=== PATIENT | female | born 1960 | race Caucasian/White ===

== ENCOUNTER 2019-05-18 10:56 | Observation (INO) ==
[2019-05-18] MEDS ORDERED: PEPCID ONE (11:50)
[2019-05-18] MEDS ORDERED: REGLAN ONE (11:50)
[2019-05-18] MEDS ORDERED: KEFZOL 1 GM/D5W 1 GM/50 ML IVPB ONE (11:50)
[2019-05-18] MEDS ORDERED: LR 1,000 ML ONE (11:50)
[2019-05-18] MEDS ORDERED: VERSED ONE (11:53)
[2019-05-18] MEDS ORDERED: XYLOCAINE-MPF 2% ONE (11:53)
[2019-05-18] MEDS ORDERED: FENTANYL ONE (11:54)
[2019-05-18] MEDS ORDERED: DIPRIVAN 1% ONE (11:54)
[2019-05-18] MEDS ORDERED: MARCAINE 0.25% PF/EPI 1:200,000 ONE (12:32)
[2019-05-18] MEDS ORDERED: METHYLENE BLUE 0.5% ONE (12:32)
[2019-05-18] MEDS ORDERED: QUELICIN (DOSE) ONE (13:03)
--- NOTE | 2019-05-18 13:08 | Diag Imaging Result Doc PS360 ---
EXAM: LYMPHOSCINTIGRAPHY W/IMG INDICATION: breast cancer TECHNIQUE: COMPARISON: None. FINDINGS: 505 uCi of technetium 99 tilmanocept was injected by Dr. Washington Hendricks subcutaneously in the quadrant of the right breast malignancy and imaging was obtained in usual fashion for the purposes of sentinel node localization prior to surgery. There is expected activity at the injection site as well as the expected axillary sharon activity. IMPRESSION: As above. Electronically signed by Ambrocio Oliva 05/18/2019 1:05 PM
[2019-05-18] MEDS ORDERED: ZOFRAN ONE (14:16)
[2019-05-18] MEDS ORDERED: DECADRON ONE (14:16)
[2019-05-18] MEDS ORDERED: EPHEDRINE ONE (14:56)
[2019-05-18] MEDS: DILAUDID ONE ×4 (15:37→15:56)
[2019-05-18] MEDS ORDERED: SALINE LOCK IV FLUID XX ONE (16:35)
[2019-05-18] MEDS ORDERED: ZOFRAN IV PRN (16:59)
[2019-05-18] MEDS ORDERED: ZOVIRAX PO PRN (16:59)
[2019-05-18] MEDS ORDERED: NON-FORMULARY MED (Fluticasone/Umeclidin/Vilanter [Trelegy Ellipta 100-62.5-25] 0 EA) INH PRN (16:59)
[2019-05-18] MEDS: NORCO-10 PO PRN ×2 (17:49→22:30)
[2019-05-18] MEDS: NICODERM PATCH TD SCH (19:06)
--- NOTE | 2019-05-18 20:05 | OPERATIVE NOTE ---
PROCEDURE DATE: 05/18/2019 PREOPERATIVE DIAGNOSIS: Right breast cancer. POSTOPERATIVE DIAGNOSIS: Right breast cancer. PROCEDURE: 1. Right axillary sentinel lymph node biopsy. 2. Right total mastectomy. SURGEON: Washington Hendricks MD. ANESTHESIA: General. ESTIMATED BLOOD LOSS: 20 mL. COMPLICATIONS: None apparent. SPECIMENS: 1. Right sentinel lymph node x2. 2. Right breast. FINDINGS: The sentinel lymph nodes were negative on frozen section. TECHNIQUE: The patient was brought to the operating room. General anesthesia was induced. Her right arm was abducted. She was prepped and draped in usual sterile fashion. Beginning in the right axilla, an incision was made with a knife and carried down through the dermis sharply. Cautery was used to continue dissection down through the subcutaneous tissue and the clavipectoral fascia. In the axilla, the probe was used to identify a lymph node with increased activity. It was excised with cautery. It was small. The 10-second count, ex vivo was 88,000. There was negligible remaining activity in the axilla with the probe. I did feel one other approximately 1 cm node. I dissected it out with cautery and sent it down for evaluation as well. I then continued this incision in the axilla in elliptical fashion around the nipple-areolar complex. The superior flap was created with cautery up to the clavicle. The inferior flap was created down to the inframammary fold. The breast was then taken off the underlying pectoralis muscle with cautery and the axillary tail was removed as well. The breast was marked with a short stitch superior and long stitch lateral. We irrigated the wound with saline. There were no signs of any bleeding. Two #7 KAREN drains were brought in through stab incisions laterally. They were anchored to the skin with nylon suture. I then closed the subcutaneous tissue with interrupted 3- 0 Polysorb and the skin with skin clips. There were no apparent complications. She was awake, in stable condition, and transferred to the recovery room. cc: Washington Hendricks MD
[2019-05-18] MEDS: MORPHINE IV PRN (20:06)
[2019-05-18] MEDS: PERIDEX MT SCH (20:08)
[2019-05-19] MEDS: MORPHINE IV PRN ×3 (00:52→15:34)
[2019-05-19] MEDS: NORCO-10 PO PRN ×6 (04:28→23:57)
[2019-05-19] MEDS: NICODERM PATCH TD SCH (08:08)
[2019-05-19] MEDS: PERIDEX MT SCH ×3 (08:14→21:00)
--- NOTE | 2019-05-19 14:11 | GENERAL SURGERY PROGRESS NOTE ---
DATE: 05/19/2019 SUBJECTIVE: The patient is doing okay. She is quite sore and feels a little lightheaded when she stands up to walk. OBJECTIVE: She is afebrile. Vital signs are stable.General: She is awake, alert, oriented x3. No acute distress. Respiratory: Bilateral equal breath sounds. Chest: The right chest incisional dressing is clean and dry. The KAREN drains have serosanguineous fluid, together putting out 135 mL total. LABORATORY: None. ASSESSMENT/PLAN: A 58-year-old female postoperative day 1, right total mastectomy and sentinel lymph node biopsy for right breast cancer. She is stable so far, but feels weak and lightheaded and not ready to discharge home. We will continue working on ambulation and strength today and plan discharge tomorrow. cc: Washington Hendricks MD
[2019-05-20] MEDS: NORCO-10 PO PRN ×4 (03:58→15:47)
[2019-05-20] MEDS: PERIDEX MT SCH (09:25)
[2019-05-20] MEDS: NICODERM PATCH TD SCH (09:25)
--- NOTE | 2019-05-20 15:13 | GENERAL SURGERY CONSULTATION ---
DATE: 05/20/2019 SUBJECTIVE: She is doing better. She is walking more, eating, voiding, and has learned some about her surgical drain. OBJECTIVE: She is afebrile. Vital signs are stable. General: She is awake, alert, and oriented x3. No acute distress. Chest: Dressing is clean and dry. KAREN drains have 20 and 25 mL of serosanguineous fluid respectively. ASSESSMENT AND PLAN: A 58-year-old female with right breast cancer, status post right total mastectomy and sentinel lymph node biopsy. She is doing well and stable for discharge. Instructions were given. cc: Washington Hendricks MD
[2019-05-20 16:10] VITALS: BP 135/65
== END 2019-05-20 16:11 | disposition home or self-care (01) ==
LOC: 4N 10:56 → OR 10:56
PROVIDERS: ADMIT Surgery; ATTEND Surgery
CPT/HCPCS: 78195; 88307; 88331; 94761; 94799; 96374; 96376; A9270; A9520; G0378; G0379; J0330; J0690; J1100; J1170; J2250; J2270; J2405; J3010; J7120; Q9968